=== PATIENT | female | born 1995 | race Two or more races ===

== ENCOUNTER → 2023-12-30 | Outpatient (CLI) | payer OTHER | END | disposition home or self-care (01) | LOC: LAB 09:08 | PROVIDERS: ATTEND Obstetrics & Gynecology | DX: R87.610 Atypical squamous cells of undetermined significance on cytologic smear of cervix (ASC-US) (principal) ==

== ENCOUNTER 2024-09-27 10:22 | Observation (INO) | payer OTHER ==
[~2024-09-27] VITALS: Ht 172.7 cm; Wt 86.2 kg
[2024-09-27] MEDS ORDERED: ACETAMINOPHEN 325 MG TAB PO ONE ×2 (10:45)
[2024-09-27 11:26] LABS: Basophils # (auto) 0 10 ^3/uL (0-0.2); Basophils % (auto) 0.3 % (0.0-2.0); Eosinophils # (auto) 0 10 ^3/uL (0-0.8); Eosinophils % (auto) 0.6 % (0.0-7.0); Hematocrit 33.8 % (36.0-46.0); Hemoglobin 11.9 g/dL (12.2-16.2); Lymphocytes # (auto) 1.9 10 ^3/uL (0.4-5.4); Mean Corpuscular Hemoglobin 32.2 pg (28.0-32.0); Mean Corpuscular Hgb Conc. 35.2 g/dL (32.0-36.0); Mean Corpuscular Volume 91.5 fL (80.0-100.0); Monocytes # (auto) 0.6 10 ^3/uL (0-1.3); Monocytes % (auto) 6.8 % (0.0-12.0); Neutrophils % (auto) 70.3 % (37.0-80.0); Platelet Count (auto) 238 10^3/uL (140-450); White Blood Cell 8.5 10^3/uL (4.4-10.8)
[2024-09-27 11:46] LABS: INR 0.88 (0.9-1.15); Prothrombin Time 9.4 sec (9.3-11.8)
[2024-09-27 11:48] LABS: Alanine Aminotransferase 12 U/L (7-40); Albumin 3.5 g/dL (3.2-4.8); Alkaline Phosphatase 107 U/L (46-116); Anion Gap 7 (5-15); Aspartate Aminotransferase 13 U/L (13-40); BUN/Creatinine Ratio 10.3 (10.0-20.0); Glucose 79 mg/dL (74-106); Sodium 137 mmol/L (136-145); Total Protein 5.9 g/dL (5.7-8.2); Uric Acid 3.6 mg/dL (3.1-7.8)
[2024-09-27 11:49] LABS: Bilirubin, Total 0.4 mg/dL (0.2-1.0); Carbon Dioxide 19 mmol/L (20-31); Chloride 111 mmol/L (98-107)
[2024-09-27 11:50] LABS: Blood Urea Nitrogen 6 mg/dL (9-23); Calcium 8.6 mg/dL (8.7-10.4)
[2024-09-27 11:57] LABS: Protein, Urine 25.9 mg/dL (1-14)
[2024-09-27 11:59] LABS: Creatinine, Urine 113.72 mg/dL (30.0-125.0); Urine Protein/Creatinine Ratio 0.23
--- NOTE | 2024-09-27 12:04 | DVH ---
Procedure: US BIOPHYSICAL PROFILE 09/27/2024 10:47 AM Indication: pih Comparison: None Technique: Sonogram of gravid uterus utilizing grayscale and color techniques. FINDINGS: Single living intrauterine gestation. Presentation: Cephalic Placenta: Anterior heart rate: 136 bpm JUAN ANTONIO: 12.3 cm, DVP: 6.1 cm Maternal cervix: Not visualized Biophysical Profile: breathing score: 2 movement score: 2 tone: 2 Quantitative JUAN ANTONIO score: 2 Total score: 8/8 IMPRESSION: 1. Single living as above. 2. Biophysical profile score: 8/8.
== END 2024-09-27 12:17 | disposition home or self-care (01) ==
LOC: UNDOADMOB 10:22 → LDRP 10:22 → UNDODISOB 12:17
PROVIDERS: ADMIT Obstetrics & Gynecology; ATTEND Obstetrics & Gynecology
DX: O13.3 Gestational [pregnancy-induced] hypertension without significant proteinuria, third trimester (principal); Z98.890 Other specified postprocedural states; Z79.899 Other long term (current) drug therapy; Z3A.39 39 weeks gestation of pregnancy
CPT/HCPCS: 36415; 76819; 80053; 81002; 82570; 84156; 84550; 85025; 85610; 85730; 94760; G0378

== ENCOUNTER 2024-09-28 14:52 | Inpatient (IN) | payer OTHER ==
[~2024-09-28] VITALS: Ht 177.8 cm; Wt 107.5 kg
[2024-10-02] MEDS ORDERED: BUTORPHANOL TARTRATE 2 MG/1 ML VIAL IV PRN ×2 (08:15)
--- NOTE | 2024-10-02 08:40 | DVH ---
LIMITED OB ULTRASOUND > 14 WKS: HISTORY: position of baby for induction of labor TECHNIQUE: Multiple real-time grayscale images of the gravid uterus with duplex Doppler color flow an d M-mode spectral analysis. TRANSDUCER: Transabdominal COMPARISON: None FINDINGS/IMPRESSION: heart rate 136 beats per minute Cephalic Presentation
--- NOTE | 2024-10-02 08:50 | DVHHP2 ---
OB CC & HPI Date Date of Admission: Oct 02, 2024 Patient Identification: : 2 Para: 0 EDC: Oct 02, 2024 EGA: [id number] Chief Complaints: Reason for admission: induction of labor Admission Nurse Assessment Rev: No History of Present Complaints PT IS ADMITTED FOR IOL ,PT DESIRES IOL BC OF SOCIAL ISSUES Past Medical History Cardiac: No pertinent Hx Pulmonary: No pertinent Hx Central Nervous System: No pertinent Hx GI: No pertinent Hx Hemotology/Oncology: No pertinent Hx Hepatobiliary: No pertinent Hx Psychiatric: No pertinent Hx Musculoskeletal: No pertinent Hx Rheumotologic: No pertinent Hx Infectious Disease: No peritnent Hx ENT: No pertinent Hx Renal/: No pertinent Hx Endocrine: No pertinent Hx Dermatology: No pertinent Hx Past Surgical History: No pertinent Hx OB History OB History Care: Good Care Ultrasounds: Normal mid trimester US Obstetrical Complications: None Medical Complications: None Allergies: Coded Allergies: NO KNOWN ALLERGIES (Unverified , 09/27/24) Home Meds No Active Prescriptions or Reported Meds Current Medications Current Medications Medications (Trade) Dose Ordered Sig/Chetan Route PRN Reason Start Time Stop Time Status Last Admin Lactated Ringer's 1,000 ml @ 125 mls/hr Q8H IV 10/02/24 08:15 Witch Sofy (Tucks) 1 pad PRN PRN TOP PERINEAL AREA DISCOMFORT 10/02/24 08:15 Sodium Lauryl Sulfate (Phisoderm) 240 ml PRN PRN TOP PERINEAL AREA DISCOMFORT 10/02/24 08:15 Benzocaine (Dermoplast) 1 applic PRN PRN TOP PERINEAL AREA DISCOMFORT 10/02/24 08:15 Butorphanol Tartrate (Stadol Injection) 1 mg Q4HPRN PRN IV MODERATE PAIN (4-6 PAIN SCALE) 10/02/24 08:15 Butorphanol Tartrate (Stadol Injection) 2 mg Q4HPRN PRN IV SEVERE PAIN (7-10 PAIN SCALE) 10/02/24 08:15 Misoprostol (Cytotec) 50 mcg Q4HPRN PRN PO CERVICAL RIPENING 10/02/24 08:15 Lidocaine HCl (Xylocaine) 20 ml ONCE PRN IJ PERINEAL AREA DISCOMFORT 10/02/24 08:15 Family & Social History Family/Social History Blood Type: Unknown Rubella: unknown RPR/VDRL: Negative GBS Status: Negative HBsAG: Negative Review of Systems Constitutional: No symptom reported Ears, Nose, & Throat: No symptom reported Eyes: No symptom reported Pulmonary/Respiratory: No symptom reported Cardiovascular: No symptom reported Gastrointestinal: No symptom reported Genitourinary: No symptom reported Musculoskeletal: No symptom reported Skin: No symptom reported Psychiatric: No symptom reported Endocrine: No symptom reported Hemotologic/Lymphatic: No symptom reported OB Admission Exam Physical Exam HEENT: TMs Normal, Fontanelles Normal, Nasal Mucosa Normal, Eyes non-injected, Oropharynx Normal, PERRLA, Moist Membranes, EOMI Heart: Rhythm Normal Lungs: Clear Abdomen: Non tender Extremities: Normal Reflexes: Normal Cervical Dilatation: 1cm Effacement: 25% Station: -2 Membranes: Intact Heart Rate: 130's Accelerations: Accelerations Present Decelerations: No Decelerations Long-Term Variability: Average (6-25) Contractions on Admission: >10 Minutes Apart Intensity: Mild OB Plan Plan Admitting Diagnosis: induction of labor Plan: Expectant Management, Induction Induction Methd: Misoprostol protocol Other Plan: INFORMED CONSENT OBTAINED Visit Coding OBGYN Date of Service: Oct 02, 2024 Billing Provider: JESSICA DAVENPORT DO LANGUAGE ARTS TEACHER Common Visit Codes: [id number] INP/OBS CARE (HIGH) LANGUAGE ARTS TEACHER Procedure Codes: 82868-99- NON-STRESS TEST JESSICA DAVENPORT DO Oct 02, 2024 08:50
[2024-10-02 09:29] LABS: Urine Bacteria None Seen /hpf (None Seen)
[2024-10-02 09:30] LABS: Basophils # (auto) 0 10 ^3/uL (0-0.2); Basophils % (auto) 0.2 % (0.0-2.0); Eosinophils # (auto) 0.1 10 ^3/uL (0-0.8); Eosinophils % (auto) 0.7 % (0.0-7.0); Hematocrit 35.2 % (36.0-46.0); Hemoglobin 11.5 g/dL (12.2-16.2); Lymphocytes # (auto) 1.8 10 ^3/uL (0.4-5.4); Lymphocytes % (auto) 22.3 % (10.0-50.0); Mean Corpuscular Hemoglobin 30.6 pg (28.0-32.0); Mean Corpuscular Hgb Conc. 32.7 g/dL (32.0-36.0); Mean Corpuscular Volume 93.6 fL (80.0-100.0); Monocytes # (auto) 0.6 10 ^3/uL (0-1.3); Monocytes % (auto) 7.7 % (0.0-12.0); Neutrophils # (auto) 5.5 10 ^3/uL (1.6-8.6); Neutrophils % (auto) 69.1 % (37.0-80.0); Nucleated Red Blood Cells % 0.1 %; Platelet Count (auto) 220 10^3/uL (140-450); Red Blood Cells 3.77 10^6/uL (4.0-5.20); Red Cell Distribution Width 13.5 % (11.8-14.3)
[2024-10-02 09:35] LABS: Urine Blood Negative /uL (Negative); Urine Clarity Turbid (Clear); Urine Color Light-Yellow (Yellow); Urine Hyaline Cast FEW /lpf (0 - 2); Urine Mucus FEW (None Seen); Urine Protein, UAD Negative (Negative); Urine Specific Gravity 1.027 (1.001-1.035); Urine Squamous Epithelial Cell MOD /hpf (<5); Urine Urobilinogen Normal (Negative); Urine WBC 8 /HPF (0-5)
--- NOTE | 2024-10-02 09:39 | DVHPN2 ---
Chief Complaints Patient reports: No new complaints Nursing reports: No new complaints Objective Medications Current Medications Medications (Trade) Dose Ordered Sig/Chetan Route PRN Reason Start Time Stop Time Status Last Admin Benzocaine (Dermoplast) 1 applic PRN PRN TOP PERINEAL AREA DISCOMFORT 10/02/24 08:15 Butorphanol Tartrate (Stadol Injection) 1 mg Q4HPRN PRN IV MODERATE PAIN (4-6 PAIN SCALE) 10/02/24 08:15 Butorphanol Tartrate (Stadol Injection) 2 mg Q4HPRN PRN IV SEVERE PAIN (7-10 PAIN SCALE) 10/02/24 08:15 Lactated Ringer's 1,000 ml @ 125 mls/hr Q8H IV 10/02/24 08:15 Lidocaine HCl (Xylocaine) 20 ml ONCE PRN IJ PERINEAL AREA DISCOMFORT 10/02/24 08:15 Misoprostol (Cytotec) 50 mcg Q4HPRN PRN PO CERVICAL RIPENING 10/02/24 08:15 Sodium Lauryl Sulfate (Phisoderm) 240 ml PRN PRN TOP PERINEAL AREA DISCOMFORT 10/02/24 08:15 Witch Sofy (Tucks) 1 pad PRN PRN TOP PERINEAL AREA DISCOMFORT 10/02/24 08:15 Others ve unchanged Studies Laboratory Tests 10/02/24 09:04 Test 10/02/24 09:04 Range/Units Serum Glucose Pending Ass/Plan Assessment iol Plan rec one cytotec Visit Coding OBGYN Date of Service: Oct 02, 2024 Billing Provider: JESSICA DAVENPORT DO SYSTEMS ACCOUNTANT Common Visit Codes: [id number] INP/OBS CARE (HIGH) SYSTEMS ACCOUNTANT Procedure Codes: 99278-69- NON-STRESS TEST JESSICA DAVENPORT DO Oct 02, 2024 09:39
[2024-10-02 09:42] LABS: INR 0.86 (0.9-1.15); Partial Thromboplastin Time 28.7 SEC (24.5-34.5); Prothrombin Time 9.3 sec (9.3-11.8)
[2024-10-02] MEDS: DERMOPLAST 60ML BOTTLE TOP PRN (09:42)
[2024-10-02] MEDS: WITCH HAZEL-GLYCERIN PAD TOP PRN (09:42)
[2024-10-02] MEDS: miSOPROStol 50 MCG per PRE-CUT 1/2 TAB PO PRN (09:42)
[2024-10-02] MEDS: PHISODERM TOP SOLN 240ML BTL TOP PRN (09:42)
[2024-10-02 09:43] LABS: Alanine Aminotransferase 10 U/L (7-40); Albumin 3.3 g/dL (3.2-4.8); Alkaline Phosphatase 107 U/L (46-116); Anion Gap 9 (5-15); Aspartate Aminotransferase 17 U/L (13-40); BUN/Creatinine Ratio 10.3 (10.0-20.0); Calcium 8.7 mg/dL (8.7-10.4); Glucose 91 mg/dL (74-106); Potassium 3.8 mmol/L (3.5-5.1); Sodium 137 mmol/L (136-145)
[2024-10-02] MEDS: LIDOCAINE 2%HCL (LOCAL ANESTH.) INJ 20ML MDV IJ PRN (09:43)
[2024-10-02 09:44] LABS: Bilirubin, Total 0.4 mg/dL (0.2-1.0)
[2024-10-02] MEDS: LACTATED RINGER'S 1,000 ML IV SCH (09:44)
[2024-10-02 09:45] LABS: Blood Urea Nitrogen 8 mg/dL (9-23); Carbon Dioxide 16 mmol/L (20-31); Chloride 112 mmol/L (98-107); Total Protein 5.7 g/dL (5.7-8.2)
[2024-10-02 10:08] LABS: Amphetamine Screen, Urine Neg (NEGATIVE); Barbiturate Scree,Urine Neg (NEGATIVE); Benzodiazephine Screen, Urine Neg (NEGATIVE); Cannabinoid Screen, Urine Neg (NEGATIVE); Cocaine Screen, Urine Neg (NEGATIVE); Opiate Scree,Urine Neg (NEGATIVE); Phencyclidine Screen, Urine Neg (NEGATIVE)
--- NOTE | 2024-10-02 18:32 | DVHPN2 ---
Chief Complaints Patient reports: No new complaints Nursing reports: No new complaints Objective Medications Current Medications Medications (Trade) Dose Ordered Sig/Chetan Route PRN Reason Start Time Stop Time Status Last Admin Benzocaine (Dermoplast) 1 applic PRN PRN TOP PERINEAL AREA DISCOMFORT 10/02/24 08:15 10/02/24 09:42 Butorphanol Tartrate (Stadol Injection) 1 mg Q4HPRN PRN IV MODERATE PAIN (4-6 PAIN SCALE) 10/02/24 08:15 Butorphanol Tartrate (Stadol Injection) 2 mg Q4HPRN PRN IV SEVERE PAIN (7-10 PAIN SCALE) 10/02/24 08:15 Lactated Ringer's 1,000 ml @ 125 mls/hr Q8H IV 10/02/24 08:15 10/02/24 15:04 Lidocaine HCl (Xylocaine) 20 ml ONCE PRN IJ PERINEAL AREA DISCOMFORT 10/02/24 08:15 10/02/24 09:43 Misoprostol (Cytotec) 50 mcg Q4HPRN PRN PO CERVICAL RIPENING 10/02/24 08:15 10/02/24 14:56 Sodium Lauryl Sulfate (Phisoderm) 240 ml PRN PRN TOP PERINEAL AREA DISCOMFORT 10/02/24 08:15 10/02/24 09:42 Witch Sofy (Tucks) 1 pad PRN PRN TOP PERINEAL AREA DISCOMFORT 10/02/24 08:15 10/02/24 09:42 Others VE-1.2 CM/50/-2 Studies Laboratory Tests 10/02/24 09:04 Test 10/02/24 09:04 Range/Units Serum Glucose 91 74-106 mg/dL Ass/Plan Assessment iol Plan FLORES BALLON INSERTED CONT WITH CYTOTEC Visit Coding OBGYN Date of Service: Oct 02, 2024 Billing Provider: JESSICA DAVENPORT DO DRIER TAKE OFF TENDER Common Visit Codes: [id number] INP/OBS CARE(HIGH) DRIER TAKE OFF TENDER Procedure Codes: 80338-79- NON-STRESS TEST JESSICA DAVENPORT DO Oct 02, 2024 18:32
--- NOTE | 2024-10-02 21:54 | DVHPN2 ---
OB Labor Progress Note Date and Time Seen Date Seen: Oct 02, 2024 Time Seen: 20:10 Subjective Patient reports: No new complaints Monitoring Method Monitoring Method: External Heart Rate Heart Rate Baseline: 125 Heart Rate Variability: Moderate Presence of FHR Accelerations: Yes Presence of FHR Decelerations: No Changes in Trends of Patterns: No Are all 5 Components of the FH: Yes Contractions Contractions Frequency: Other (Q2-3min) Duration of Contraction: 80 Contractions Intensity: Mild Contractions Resting Tone: Relaxed Membranes Membranes: Intact Vaginal Exam Vag Exam Deferred: No Vaginal Exam Dilation: 1 Vaginal Exam Effacement: 0 Vaginal Exam Station: -3 Vaginal Exam Presentation: VTX Vaginal Exam Show: None Medications Medications - Pitocin: No Medication - Epidural: No Medication - Other Misoprostol Lab Results Lab Results Vital Signs Date Time Temp Pulse Resp B/P (MAP) Pulse Ox O2 Delivery O2 Flow Rate FiO2 10/03/24 02:37 114/70 10/03/24 02:28 98.9 53 16 95 98.9 Current Medications Medications (Trade) Dose Ordered Sig/Chetan Start Time Stop Time Status Last Admin Dose Admin Lactated Ringer's 1,000 ml @ 125 mls/hr Q8H 10/02/24 08:15 10/03/24 02:38 125 MLS/HR Witch Sofy (Tucks) 1 pad PRN PRN 10/02/24 08:15 10/02/24 09:42 1 PAD Sodium Lauryl Sulfate (Phisoderm) 240 ml PRN PRN 10/02/24 08:15 10/02/24 09:42 240 ML Benzocaine (Dermoplast) 1 applic PRN PRN 10/02/24 08:15 10/02/24 09:42 1 APPLIC Butorphanol Tartrate (Stadol Injection) 1 mg Q4HPRN PRN 10/02/24 08:15 10/03/24 02:07 DC Butorphanol Tartrate (Stadol Injection) 2 mg Q4HPRN PRN 10/02/24 08:15 10/03/24 02:07 DC Misoprostol (Cytotec) 50 mcg Q4HPRN PRN 10/02/24 08:15 10/02/24 14:56 50 MCG Lidocaine HCl (Xylocaine) 20 ml ONCE PRN 10/02/24 08:15 10/02/24 09:43 20 ML Naloxone HCl (Narcan) 0.2 mg PRN ONCE 10/03/24 00:30 10/03/24 00:32 DC Ephedrine Sulfate (ePHEDrine SULFATE) 10 mg PRN ONCE 10/03/24 00:30 10/03/24 00:32 DC Fentanyl Citrate 100 mcg ONCE ONCE 10/03/24 00:30 10/03/24 00:32 DC 10/03/24 02:37 100 MCG Lidocaine HCl (Xylocaine-Pf 2% Injection) 10 ml ONCE ONCE 10/03/24 00:45 10/03/24 00:46 DC 10/03/24 02:38 10 ML Ondansetron HCl (Zofran) 4 mg Q4HPRN PRN 10/03/24 00:45 Oxytocin 1,000 ml @ 6 ml/hr Q24H 10/03/24 03:15 10/03/24 04:44 6 ML/HR Terbutaline Sulfate (Brethine Inj) 0.25 mg ONCE PRN 10/03/24 03:15 Oxytocin 500 ml @ 999 mls/hr Q31M ONCE 10/03/24 03:15 10/03/24 03:45 DC Oxytocin 500 ml @ 125 mls/hr Q4H ONCE 10/03/24 03:45 10/03/24 07:44 Cefazolin Sodium 50 ml @ 100 mls/hr Q8HR 10/03/24 06:00 10/03/24 05:54 100 MLS/HR Laboratory Tests Test 10/02/24 09:04 10/02/24 08:00 Range/Units White Blood Count 8.0 4.4-10.8 10^3/uL Red Blood Count 3.77 L 4.0-5.20 10^6/uL Hemoglobin 11.5 L 12.2-16.2 g/dL Hematocrit 35.2 L 36.0-46.0 % Mean Corpuscular Volume 93.6 80.0-100.0 fL Mean Corpuscular Hemoglobin 30.6 28.0-32.0 pg Mean Corpuscular Hemoglobin Concent 32.7 32.0-36.0 g/dL Red Cell Distribution Width 13.5 11.8-14.3 % Platelet Count 220 140-450 10^3/uL Mean Platelet Volume 8.7 6.9-10.8 fL Neutrophils (%) (Auto) 69.1 37.0-80.0 % Lymphocytes (%) (Auto) 22.3 10.0-50.0 % Monocytes (%) (Auto) 7.7 0.0-12.0 % Eosinophils (%) (Auto) 0.7 0.0-7.0 % Basophils (%) (Auto) 0.2 0.0-2.0 % Neutrophils # (Auto) 5.5 1.6-8.6 10 ^3/uL Lymphocytes # (Auto) 1.8 0.4-5.4 10 ^3/uL Monocytes # (Auto) 0.6 0-1.3 10 ^3/uL Eosinophils # (Auto) 0.1 0-0.8 10 ^3/uL Basophils # (Auto) 0 0-0.2 10 ^3/uL Nucleated Red Blood Cells 0.1 % Prothrombin Time 9.3 9.3-11.8 sec Prothrombin Time INR 0.86 L 0.9-1.15 Activated Partial Thromboplast Time 28.7 24.5-34.5 SEC Sodium Level 137 136-145 mmol/L Potassium Level 3.8 3.5-5.1 mmol/L Chloride Level 112 H 98-107 mmol/L Carbon Dioxide Level 16 L 20-31 mmol/L Anion Gap 9 5-15 Blood Urea Nitrogen 8 L 9-23 mg/dL Creatinine 0.78 # 0.550-1.02 mg/dL Glomerular Filtration Rate Calc 105 >90 mL/min BUN/Creatinine Ratio 10.3 10.0-20.0 Serum Glucose 91 74-106 mg/dL Calcium Level 8.7 8.7-10.4 mg/dL Total Bilirubin 0.4 0.2-1.0 mg/dL Aspartate Amino Transferase (AST) 17 13-40 U/L Alanine Aminotransferase (ALT) 10 7-40 U/L Alkaline Phosphatase 107 46-116 U/L Total Protein 5.7 5.7-8.2 g/dL Albumin 3.3 3.2-4.8 g/dL Treponema pallidum Antibody Non-reactive Negative Hepatitis C Antibody Negative Negative Urine Color Light-yellow Yellow Urine Clarity Turbid H Clear Urine pH 6.0 5.0-9.0 Urine Specific [place] 1.027 1.001-1.035 Urine Protein Negative Negative Urine Ketones Negative Negative Urine Blood Negative Negative /uL Urine Nitrite Negative Negative Urine Bilirubin Negative Negative Urine Urobilinogen Normal Negative mg/dL Urine Leukocyte Esterase Trace Negative /uL Urine RBC 2 0 - 4 /hpf Urine Microscopic WBC 8 H 0-5 /HPF Urine Squamous Epithelial Cells Mod <5 /hpf Urine Bacteria None seen None Seen /hpf Urine Hyaline Casts Few 0 - 2 /lpf Urine Mucus Few None Seen Urine Glucose Normal Normal mg/dL Urine Opiates Screen Neg NEGATIVE Urine Fentanyl Screen Neg NEGATIVE Urine Barbiturates Screen Neg NEGATIVE Urine Phencyclidine Screen Neg NEGATIVE Urine Amphetamines Screen Neg NEGATIVE Urine Benzodiazepines Screen Neg NEGATIVE Urine Cocaine Screen Neg NEGATIVE Urine Cannabinoids Screen Neg NEGATIVE Assessment Assessment IUP at 39w 5d IOL Category 1 FHR tracing Plan Plan [place] balloon readjusted Continue EFM per policy Intrauterine resuscitation PRN Encourage ambulation / frequent position change to facilitate labor Labor analgesia /anesthesia PRN Plan discussed with: Patient, Other (Mother) Visit Coding OBGYN Date of Service: Oct 02, 2024 Billing Provider: SCHUYLER RAGSDALE CNM FISHERIES TECHNICAL OFFICER Common Visit Codes: [id number] INP/OBS CARE(HIGH) FISHERIES TECHNICAL OFFICER Procedure Codes: 72794-85- NON-STRESS TEST SCHUYLER RAGSDALE CNM Oct 02, 2024 21:54
--- NOTE | 2024-10-03 00:11 | DVHPN2 ---
OB Labor Progress Note Date and Time Seen Date Seen: Oct 03, 2024 Time Seen: 00:01 Subjective Patient reports: Other (Contractions feeling stronger) Monitoring Method Monitoring Method: External Heart Rate Heart Rate Baseline: 115 Heart Rate Variability: Moderate Presence of FHR Accelerations: Yes Presence of FHR Decelerations: No Changes in Trends of Patterns: No Are all 5 Components of the FH: Yes Contractions Contractions Frequency: Other (2-3min) Duration of Contraction: 70 Contractions Intensity: Moderate Contractions Resting Tone: Relaxed Membranes Membranes: Intact Vaginal Exam Vag Exam Deferred: Yes Medications Medications - Pitocin: No Medication - Epidural: No Medication - Other Misoprostol Dose #2 given at 1456 Lab Results Lab Results Vital Signs Date Time Temp Pulse Resp B/P (MAP) Pulse Ox O2 Delivery O2 Flow Rate FiO2 10/03/24 02:37 114/70 10/03/24 02:28 98.9 53 16 95 98.9 Current Medications Medications (Trade) Dose Ordered Sig/Chetan Start Time Stop Time Status Last Admin Dose Admin Lactated Ringer's 1,000 ml @ 125 mls/hr Q8H 10/02/24 08:15 10/03/24 02:38 125 MLS/HR Witch Sofy (Tucks) 1 pad PRN PRN 10/02/24 08:15 10/02/24 09:42 1 PAD Sodium Lauryl Sulfate (Phisoderm) 240 ml PRN PRN 10/02/24 08:15 10/02/24 09:42 240 ML Benzocaine (Dermoplast) 1 applic PRN PRN 10/02/24 08:15 10/02/24 09:42 1 APPLIC Butorphanol Tartrate (Stadol Injection) 1 mg Q4HPRN PRN 10/02/24 08:15 10/03/24 02:07 DC Butorphanol Tartrate (Stadol Injection) 2 mg Q4HPRN PRN 10/02/24 08:15 10/03/24 02:07 DC Misoprostol (Cytotec) 50 mcg Q4HPRN PRN 10/02/24 08:15 10/02/24 14:56 50 MCG Lidocaine HCl (Xylocaine) 20 ml ONCE PRN 10/02/24 08:15 10/02/24 09:43 20 ML Naloxone HCl (Narcan) 0.2 mg PRN ONCE 10/03/24 00:30 10/03/24 00:32 DC Ephedrine Sulfate (ePHEDrine SULFATE) 10 mg PRN ONCE 10/03/24 00:30 10/03/24 00:32 DC Fentanyl Citrate 100 mcg ONCE ONCE 10/03/24 00:30 10/03/24 00:32 DC 10/03/24 02:37 100 MCG Lidocaine HCl (Xylocaine-Pf 2% Injection) 10 ml ONCE ONCE 10/03/24 00:45 10/03/24 00:46 DC 10/03/24 02:38 10 ML Ondansetron HCl (Zofran) 4 mg Q4HPRN PRN 10/03/24 00:45 Oxytocin 1,000 ml @ 6 ml/hr Q24H 10/03/24 03:15 10/03/24 04:44 6 ML/HR Terbutaline Sulfate (Brethine Inj) 0.25 mg ONCE PRN 10/03/24 03:15 Oxytocin 500 ml @ 999 mls/hr Q31M ONCE 10/03/24 03:15 10/03/24 03:45 DC Oxytocin 500 ml @ 125 mls/hr Q4H ONCE 10/03/24 03:45 10/03/24 07:44 Cefazolin Sodium 50 ml @ 100 mls/hr Q8HR 10/03/24 06:00 10/03/24 05:54 100 MLS/HR Laboratory Tests Test 10/02/24 09:04 10/02/24 08:00 Range/Units White Blood Count 8.0 4.4-10.8 10^3/uL Red Blood Count 3.77 L 4.0-5.20 10^6/uL Hemoglobin 11.5 L 12.2-16.2 g/dL Hematocrit 35.2 L 36.0-46.0 % Mean Corpuscular Volume 93.6 80.0-100.0 fL Mean Corpuscular Hemoglobin 30.6 28.0-32.0 pg Mean Corpuscular Hemoglobin Concent 32.7 32.0-36.0 g/dL Red Cell Distribution Width 13.5 11.8-14.3 % Platelet Count 220 140-450 10^3/uL Mean Platelet Volume 8.7 6.9-10.8 fL Neutrophils (%) (Auto) 69.1 37.0-80.0 % Lymphocytes (%) (Auto) 22.3 10.0-50.0 % Monocytes (%) (Auto) 7.7 0.0-12.0 % Eosinophils (%) (Auto) 0.7 0.0-7.0 % Basophils (%) (Auto) 0.2 0.0-2.0 % Neutrophils # (Auto) 5.5 1.6-8.6 10 ^3/uL Lymphocytes # (Auto) 1.8 0.4-5.4 10 ^3/uL Monocytes # (Auto) 0.6 0-1.3 10 ^3/uL Eosinophils # (Auto) 0.1 0-0.8 10 ^3/uL Basophils # (Auto) 0 0-0.2 10 ^3/uL Nucleated Red Blood Cells 0.1 % Prothrombin Time 9.3 9.3-11.8 sec Prothrombin Time INR 0.86 L 0.9-1.15 Activated Partial Thromboplast Time 28.7 24.5-34.5 SEC Sodium Level 137 136-145 mmol/L Potassium Level 3.8 3.5-5.1 mmol/L Chloride Level 112 H 98-107 mmol/L Carbon Dioxide Level 16 L 20-31 mmol/L Anion Gap 9 5-15 Blood Urea Nitrogen 8 L 9-23 mg/dL Creatinine 0.78 # 0.550-1.02 mg/dL Glomerular Filtration Rate Calc 105 >90 mL/min BUN/Creatinine Ratio 10.3 10.0-20.0 Serum Glucose 91 74-106 mg/dL Calcium Level 8.7 8.7-10.4 mg/dL Total Bilirubin 0.4 0.2-1.0 mg/dL Aspartate Amino Transferase (AST) 17 13-40 U/L Alanine Aminotransferase (ALT) 10 7-40 U/L Alkaline Phosphatase 107 46-116 U/L Total Protein 5.7 5.7-8.2 g/dL Albumin 3.3 3.2-4.8 g/dL Treponema pallidum Antibody Non-reactive Negative Hepatitis C Antibody Negative Negative Urine Color Light-yellow Yellow Urine Clarity Turbid H Clear Urine pH 6.0 5.0-9.0 Urine Specific [place] 1.027 1.001-1.035 Urine Protein Negative Negative Urine Ketones Negative Negative Urine Blood Negative Negative /uL Urine Nitrite Negative Negative Urine Bilirubin Negative Negative Urine Urobilinogen Normal Negative mg/dL Urine Leukocyte Esterase Trace Negative /uL Urine RBC 2 0 - 4 /hpf Urine Microscopic WBC 8 H 0-5 /HPF Urine Squamous Epithelial Cells Mod <5 /hpf Urine Bacteria None seen None Seen /hpf Urine Hyaline Casts Few 0 - 2 /lpf Urine Mucus Few None Seen Urine Glucose Normal Normal mg/dL Urine Opiates Screen Neg NEGATIVE Urine Fentanyl Screen Neg NEGATIVE Urine Barbiturates Screen Neg NEGATIVE Urine Phencyclidine Screen Neg NEGATIVE Urine Amphetamines Screen Neg NEGATIVE Urine Benzodiazepines Screen Neg NEGATIVE Urine Cocaine Screen Neg NEGATIVE Urine Cannabinoids Screen Neg NEGATIVE Assessment Assessment IUPat 39w 6d IOL Category 1 FHR Tracing Rubella Non-Immune Plan Plan Continue Current management EFM per policy Intrauterine resuscitation PRN Encourage and assist with ambulation and frequent position change to facilitate labor Labor analgesia / anesthesia PRN Supportive care Plan discussed with: Patient, Other (Patient's mother) Visit Coding OBGYN Date of Service: Oct 03, 2024 Billing Provider: SCHUYLER RAGSDALE CNM NETWORKING TECHNICIAN Common Visit Codes: [id number] INP/OBS CARE(HIGH) NETWORKING TECHNICIAN Procedure Codes: 94889-25- NON-STRESS TEST SCHUYLER RAGSDALE CNM Oct 03, 2024 00:11
[2024-10-03] MEDS ORDERED: LIDOCAINE HCL 2 %PF INJ 10ML AMP IJ ONE (00:17)
[2024-10-03] MEDS ORDERED: NALOXONE HCL 0.4 MG/ML VIAL IV ONE (00:30)
[2024-10-03] MEDS ORDERED: ePHEDrine SULFATE 50 MG/ML AMP IV ONE (00:30)
--- NOTE | 2024-10-03 01:57 | EPIDURAL ---
Anesthesia Procedural Note - Epidural Informed consent obtained?: Yes Medication Administered: Fentanyl 100 mcg Sterile prept drape: Yes Spinal level of insertion: L4-L5 Test dose of lidocaine & Epine: Negative Infusion started: Yes Start time: 00:50 End time: 01:15 Procedure description Procedure description: Called for labor analgesia. History taken, chart reviewed and patient examined. Patient is at 39+6 here for induction of labor, requesting epidural. Informed consent for CSE obtained. Sitting position, sterile prep and drape. Time out done at 0053 (BP 127/78 HR 78 spO2 99). L4-5 space infiltrated with 1% lido. Epidural needle placed with KALIN at 5cm. 25G spinal needle +clear CSF. 15mcg fentanyl given IT at 0059 (BP 116/74 HR 81 spO2 97). Epidural catheter secured at 10cm. Aspiration and test dose (5cc 1.5% lido with epi) negative at 0101 (BP 116/70 HR 71 spO2 98). 85 mcg fentanyl given via epidural at 0102 9BP 110/68 HR 65 spO2 97). Patient reports good pain relief. 0.2% ropivacaine infusion started at 0112 (BP 111/69 HR 80 spO2 97). VIOLET LYON MD Oct 03, 2024 01:57
[2024-10-03 02:28] VITALS: BP 107/62; PULSE 53; RESP 16; TEMP 98.9; O2SAT 95
[2024-10-03] MEDS: fentaNYL CITRATE 100 MCG/2 ML VL IV ONE (02:37)
[2024-10-03] MEDS: LIDOCAINE HCL 2 %PF INJ 10ML AMP IJ ONE (02:38)
[2024-10-03] MEDS ORDERED: TERBUTALINE SULFATE 1 MG/ML 1ML VIAL SC PRN (03:15)
[2024-10-03] MEDS: LACT. RINGERS/OXYTOCIN 20UNITS 1,000 ML IV SCH (04:44)
[2024-10-03] MEDS: ROPIVACAINE HCL 200 ML ONE ×2 (05:04→13:26)
--- NOTE | 2024-10-03 05:38 | DVHPN2 ---
OB Labor Progress Note Date and Time Seen Date Seen: Oct 03, 2024 Time Seen: 04:20 Subjective Patient reports: No new complaints Monitoring Method Monitoring Method: External Heart Rate Heart Rate Baseline: 115 Heart Rate Variability: Moderate Presence of FHR Decelerations: No Changes in Trends of Patterns: No Are all 5 Components of the FH: Yes Contractions Contractions Frequency: Other (2min) Duration of Contraction: 80 Contractions Intensity: Moderate Contractions Resting Tone: Relaxed Membranes Membranes: Intact Vaginal Exam Vag Exam Deferred: No Vaginal Exam Dilation: 5 Vaginal Exam Effacement: 50 Vaginal Exam Station: -2 Vaginal Exam Presentation: VTX Vaginal Exam Show: Moderate Medications Medications - Pitocin: Yes Medication - Epidural: Yes Lab Results Lab Results Vital Signs Date Time Temp Pulse Resp B/P (MAP) Pulse Ox O2 Delivery O2 Flow Rate FiO2 10/03/24 02:37 114/70 10/03/24 02:28 98.9 53 16 95 98.9 Current Medications Medications (Trade) Dose Ordered Sig/Chetan Start Time Stop Time Status Last Admin Dose Admin Lactated Ringer's 1,000 ml @ 125 mls/hr Q8H 10/02/24 08:15 10/03/24 02:38 125 MLS/HR Witch Sofy (Tucks) 1 pad PRN PRN 10/02/24 08:15 10/02/24 09:42 1 PAD Sodium Lauryl Sulfate (Phisoderm) 240 ml PRN PRN 10/02/24 08:15 10/02/24 09:42 240 ML Benzocaine (Dermoplast) 1 applic PRN PRN 10/02/24 08:15 10/02/24 09:42 1 APPLIC Butorphanol Tartrate (Stadol Injection) 1 mg Q4HPRN PRN 10/02/24 08:15 10/03/24 02:07 DC Butorphanol Tartrate (Stadol Injection) 2 mg Q4HPRN PRN 10/02/24 08:15 10/03/24 02:07 DC Misoprostol (Cytotec) 50 mcg Q4HPRN PRN 10/02/24 08:15 10/02/24 14:56 50 MCG Lidocaine HCl (Xylocaine) 20 ml ONCE PRN 10/02/24 08:15 10/02/24 09:43 20 ML Naloxone HCl (Narcan) 0.2 mg PRN ONCE 10/03/24 00:30 10/03/24 00:32 DC Ephedrine Sulfate (ePHEDrine SULFATE) 10 mg PRN ONCE 10/03/24 00:30 10/03/24 00:32 DC Fentanyl Citrate 100 mcg ONCE ONCE 10/03/24 00:30 10/03/24 00:32 DC 10/03/24 02:37 100 MCG Lidocaine HCl (Xylocaine-Pf 2% Injection) 10 ml ONCE ONCE 10/03/24 00:45 10/03/24 00:46 DC 10/03/24 02:38 10 ML Ondansetron HCl (Zofran) 4 mg Q4HPRN PRN 10/03/24 00:45 Oxytocin 1,000 ml @ 6 ml/hr Q24H 10/03/24 03:15 10/03/24 04:44 6 ML/HR Terbutaline Sulfate (Brethine Inj) 0.25 mg ONCE PRN 10/03/24 03:15 Oxytocin 500 ml @ 999 mls/hr Q31M ONCE 10/03/24 03:15 10/03/24 03:45 DC Oxytocin 500 ml @ 125 mls/hr Q4H ONCE 10/03/24 03:45 10/03/24 07:44 Cefazolin Sodium 50 ml @ 100 mls/hr Q8HR 10/03/24 06:00 10/03/24 05:54 100 MLS/HR Laboratory Tests Test 10/02/24 09:04 10/02/24 08:00 Range/Units White Blood Count 8.0 4.4-10.8 10^3/uL Red Blood Count 3.77 L 4.0-5.20 10^6/uL Hemoglobin 11.5 L 12.2-16.2 g/dL Hematocrit 35.2 L 36.0-46.0 % Mean Corpuscular Volume 93.6 80.0-100.0 fL Mean Corpuscular Hemoglobin 30.6 28.0-32.0 pg Mean Corpuscular Hemoglobin Concent 32.7 32.0-36.0 g/dL Red Cell Distribution Width 13.5 11.8-14.3 % Platelet Count 220 140-450 10^3/uL Mean Platelet Volume 8.7 6.9-10.8 fL Neutrophils (%) (Auto) 69.1 37.0-80.0 % Lymphocytes (%) (Auto) 22.3 10.0-50.0 % Monocytes (%) (Auto) 7.7 0.0-12.0 % Eosinophils (%) (Auto) 0.7 0.0-7.0 % Basophils (%) (Auto) 0.2 0.0-2.0 % Neutrophils # (Auto) 5.5 1.6-8.6 10 ^3/uL Lymphocytes # (Auto) 1.8 0.4-5.4 10 ^3/uL Monocytes # (Auto) 0.6 0-1.3 10 ^3/uL Eosinophils # (Auto) 0.1 0-0.8 10 ^3/uL Basophils # (Auto) 0 0-0.2 10 ^3/uL Nucleated Red Blood Cells 0.1 % Prothrombin Time 9.3 9.3-11.8 sec Prothrombin Time INR 0.86 L 0.9-1.15 Activated Partial Thromboplast Time 28.7 24.5-34.5 SEC Sodium Level 137 136-145 mmol/L Potassium Level 3.8 3.5-5.1 mmol/L Chloride Level 112 H 98-107 mmol/L Carbon Dioxide Level 16 L 20-31 mmol/L Anion Gap 9 5-15 Blood Urea Nitrogen 8 L 9-23 mg/dL Creatinine 0.78 # 0.550-1.02 mg/dL Glomerular Filtration Rate Calc 105 >90 mL/min BUN/Creatinine Ratio 10.3 10.0-20.0 Serum Glucose 91 74-106 mg/dL Calcium Level 8.7 8.7-10.4 mg/dL Total Bilirubin 0.4 0.2-1.0 mg/dL Aspartate Amino Transferase (AST) 17 13-40 U/L Alanine Aminotransferase (ALT) 10 7-40 U/L Alkaline Phosphatase 107 46-116 U/L Total Protein 5.7 5.7-8.2 g/dL Albumin 3.3 3.2-4.8 g/dL Treponema pallidum Antibody Non-reactive Negative Hepatitis C Antibody Negative Negative Urine Color Light-yellow Yellow Urine Clarity Turbid H Clear Urine pH 6.0 5.0-9.0 Urine Specific [place] 1.027 1.001-1.035 Urine Protein Negative Negative Urine Ketones Negative Negative Urine Blood Negative Negative /uL Urine Nitrite Negative Negative Urine Bilirubin Negative Negative Urine Urobilinogen Normal Negative mg/dL Urine Leukocyte Esterase Trace Negative /uL Urine RBC 2 0 - 4 /hpf Urine Microscopic WBC 8 H 0-5 /HPF Urine Squamous Epithelial Cells Mod <5 /hpf Urine Bacteria None seen None Seen /hpf Urine Hyaline Casts Few 0 - 2 /lpf Urine Mucus Few None Seen Urine Glucose Normal Normal mg/dL Urine Opiates Screen Neg NEGATIVE Urine Fentanyl Screen Neg NEGATIVE Urine Barbiturates Screen Neg NEGATIVE Urine Phencyclidine Screen Neg NEGATIVE Urine Amphetamines Screen Neg NEGATIVE Urine Benzodiazepines Screen Neg NEGATIVE Urine Cocaine Screen Neg NEGATIVE Urine Cannabinoids Screen Neg NEGATIVE Assessment Assessment IUP at 39w 6d IOL Category 1 FHR Tracing Rubella Non-Immune Plan Plan Continue current plan Intrauterine resuscitation PRN Frequent position change to facilitate labor Supportive care Anticipate Plan discussed with: Patient Visit Coding OBGYN Date of Service: Oct 03, 2024 Billing Provider: SCHUYLER RAGSDALE CNM GROCERY CLERK Common Visit Codes: [id number] INP/OBS CARE(HIGH) GROCERY CLERK Procedure Codes: 83393-38- NON-STRESS TEST SCHUYLER RAGSDALE CNM Oct 03, 2024 05:38
[2024-10-03] MEDS: ceFAZolin 1GM/50ML 50 ML IV SCH (05:54)
--- NOTE | 2024-10-03 07:11 | DVHPN2 ---
Chief Complaints Patient reports: No new complaints Nursing reports: No new complaints Objective Vitals Vital Signs Date Time Temp Pulse Resp B/P (MAP) Pulse Ox O2 Delivery O2 Flow Rate FiO2 10/03/24 02:37 114/70 10/03/24 02:28 98.9 53 16 95 98.9 Medications Current Medications Medications (Trade) Dose Ordered Sig/Chetan Route PRN Reason Start Time Stop Time Status Last Admin Benzocaine (Dermoplast) 1 applic PRN PRN TOP PERINEAL AREA DISCOMFORT 10/02/24 08:15 10/02/24 09:42 Cefazolin Sodium 50 ml @ 100 mls/hr Q8HR IV 10/03/24 06:00 10/03/24 05:54 Lactated Ringer's 1,000 ml @ 125 mls/hr Q8H IV 10/02/24 08:15 10/03/24 02:38 Lidocaine HCl (Xylocaine) 20 ml ONCE PRN IJ PERINEAL AREA DISCOMFORT 10/02/24 08:15 10/02/24 09:43 Misoprostol (Cytotec) 50 mcg Q4HPRN PRN PO CERVICAL RIPENING 10/02/24 08:15 10/02/24 14:56 Ondansetron HCl (Zofran) 4 mg Q4HPRN PRN IV NAUSEA / VOMITING 10/03/24 00:45 Oxytocin 1,000 ml @ 6 ml/hr Q24H IV 10/03/24 03:15 10/03/24 04:44 Sodium Lauryl Sulfate (Phisoderm) 240 ml PRN PRN TOP PERINEAL AREA DISCOMFORT 10/02/24 08:15 10/02/24 09:42 Terbutaline Sulfate (Brethine Inj) 0.25 mg ONCE PRN SC Uterine tachysystole 10/03/24 03:15 Witch Sofy (Tucks) 1 pad PRN PRN TOP PERINEAL AREA DISCOMFORT 10/02/24 08:15 10/02/24 09:42 Others VE-4-5CM/50/-2 Studies Laboratory Tests 10/02/24 09:04 Test 10/02/24 09:04 Range/Units Serum Glucose 91 74-106 mg/dL Ass/Plan Assessment iol Plan CONT WITH CURRENT CARE Visit Coding OBGYN Date of Service: Oct 03, 2024 Billing Provider: ZAND,JESSICA DO CLINICAL ADMINISTRATIVE COORDINATOR Common Visit Codes: [id number] INP/OBS CARE(HIGH) CLINICAL ADMINISTRATIVE COORDINATOR Procedure Codes: 32092-83- NON-STRESS TEST JESSICA DAVENPORT DO Oct 03, 2024 07:11
[2024-10-03] MEDS: ONDANSETRON HCL 4 MG/2 ML VIAL IV PRN (08:44)
[2024-10-03] MEDS: METHYLERGONOVINE MALEATE 0.2 MG/ML AMP IM ONE ×2 (15:44→16:43)
[2024-10-03] MEDS: LACT. RINGERS/OXYTOCIN 20UNITS 500 ML IV ONE ×2 (15:48→16:08)
--- NOTE | 2024-10-03 16:12 | LDN2 ---
Labor and Delivery Note Date 10/03/24 Age 28 3 Para 1 AB 2 EDC 4-6 EGA 39wks Diagnosis iol Vaginal Delivery: VTX Vacuum Assisted: No Placenta: Spontaneous Sex: Male Apgars 9-10 Nuchal Cord Transected: Yes Amniotic Fluid: Clear Anesthesia epidural Episiotomy: No Extension: Yes (midline 2nd deg perineal lac ) Repaired with 2-0 chromic EBL 300ml Labs Blood Bank 10/02/24 09:04: Blood Type O POSITIVE Complications none Conditions stable Comments/Significant Med Daniella spec exam no cxal alc Visit Coding OBGYN Date of Service: Oct 03, 2024 Billing Provider: JESSICA DAVENPORT DO STEEL PICKLER Common Visit Codes: [id number] INP/OBS CARE(LOW) STEEL PICKLER Procedure Codes: [id number] DELIVERY ONLY JESSICA DAVENPORT DO Oct 03, 2024 16:12
[2024-10-03] MEDS ORDERED: ACETAMINOPHEN 325 MG TAB PO PRN (16:15)
[2024-10-03] MEDS: IBUPROFEN 600 MG TAB PO PRN (16:42)
[2024-10-03] MEDS: HYDROcodone-ACET 10/325MG TAB PO PRN (17:57)
[2024-10-03 19:00] VITALS: BP 124/64; PULSE 97; RESP 16; TEMP 98.4; O2SAT 95
[2024-10-03] MEDS ORDERED: TRANEXAMIC ACID 1,000 mg/10ml INJ VIAL IV ONE (19:47)
[2024-10-03] MEDS: DOCUSATE SOD 100 MG CAP PO SCH (22:03)
[2024-10-03 23:00] VITALS: BP 125/59; PULSE 82; RESP 16; TEMP 98.1; O2SAT 97
[2024-10-04 03:00] VITALS: BP 98/59; PULSE 81; RESP 16; TEMP 98.7; O2SAT 96
[2024-10-04 07:30] VITALS: BP 110/64; PULSE 78; RESP 18; TEMP 98.2; O2SAT 97
[2024-10-04] MEDS ORDERED: PREN-96 PO (08:52)
[2024-10-04] MEDS ORDERED: IBU600T PO (08:52)
[2024-10-04] MEDS ORDERED: DOCU-265 PO (08:52)
[2024-10-04] MEDS ORDERED: HYDR-4072 PO (08:53)
[2024-10-04] MEDS ORDERED: DOCU-94 PO (08:53)
[2024-10-04 10:30] VITALS: BP 108/66; PULSE 77; RESP 18; TEMP 97.9; O2SAT 98
[2024-10-04] MEDS: TETANUS-DIPTH-ACEL PERTUSSIS 0.5ML SYR Tdap IM ONE (10:45)
[2024-10-04 15:00] VITALS: BP 122/68; PULSE 70; RESP 18; TEMP 98.3; O2SAT 98
--- NOTE | 2024-10-04 16:31 | DVHPN2 ---
Progress Note Date Seen: Oct 04, 2024 Subjective S: bleeding is less, eating food without issues, denies lightheaded/dizziness, pain well controlled with oral medications, no concerns with urinating, passing flatus, no BM yet, ambulating well, vital signs Vital Sign Date Time Temp Pulse Resp B/P (MAP) Pulse Ox O2 Delivery O2 Flow Rate FiO2 10/04/24 15:00 98.3 70 18 122/68 (86) 98 98.3 10/04/24 07:30 Room Air Total Intake and Output 10/03/24 10/03/24 10/04/24 15:00 23:00 07:00 Output Total 1000 ml 300 ml Balance -1000 ml -300 ml medications Current Medications Medications Dose Ordered Sig/Chetan Route Start Time Stop Time Status Last Admin Dose Admin Billy Goetz 1 pad PRN PRN TOP 10/02/24 08:15 10/02/24 09:42 1 PAD Sodium Lauryl Sulfate 240 ml PRN PRN TOP 10/02/24 08:15 10/02/24 09:42 240 ML Benzocaine 1 applic PRN PRN TOP 10/02/24 08:15 10/02/24 09:42 1 APPLIC Lidocaine HCl 20 ml ONCE PRN IJ 10/02/24 08:15 10/02/24 09:43 20 ML Ondansetron HCl 4 mg Q4HPRN PRN IV 10/03/24 00:45 10/03/24 13:16 4 MG Ibuprofen 600 mg Q6HP PRN PO 10/03/24 16:15 10/04/24 12:50 600 MG Acetaminophen 650 mg Q4HP PRN PO 10/03/24 16:15 Docusate Sodium 200 mg HS PO 10/03/24 22:00 10/03/24 22:03 200 MG Acetaminophen/ Hydrocodone Bitart 1 tab Q4HP PRN PO 10/03/24 17:45 10/04/24 08:41 1 TAB laboratory and microbiology Laboratory Tests 10/02/24 09:04 Test 10/02/24 09:04 Range/Units Serum Glucose 91 74-106 mg/dL Objective O: VSS Chest: heart sounds normal and lung sounds clear bilaterally Abd: soft, non-tender, fundus 1 below U/firm/midline, active bowel sounds, no rebound or guarding Perineum: sutures intact, edges well approximated, no erythema/edema noted Ext: Non-tender, No edema, 2+ BLE DTRs Lochia: minimal See lab results Problems(with codes): (1) (normal spontaneous vaginal delivery) (2) Second degree perineal laceration during delivery (3) Periurethral laceration, delivered, current hospitalization Assessment/Plan A: 28yo now PPD#1 s/p P: D/C home today Rx sent to pharmacy precautions and preeclampsia warning signs reviewed F/U with [facility] office in 2 weeks Plan discussed with: Patient Visit Coding OBGYN Date of Service: Oct 04, 2024 Billing Provider: MADELINE SALOMON CNM LOST CHARGE CARD CLERK Common Visit Codes: [id number] INP/OBS CARE(HIGH) MADELINE SALOMON CNM Oct 04, 2024 16:31
--- NOTE | 2024-10-04 16:31 | DVHDS2 ---
Obstetrics Discharge Summary Obstetrics Discharge Summary Date of Admission: Oct 02, 2024 Date of Discharge: Oct 04, 2024 Reason For Admission: Induction of Labor Procedures: NST, Ultrasound Intrapartum Procedures: Spontaneous vaginal deliv Procedures: None Operative Complicat: Laceration (Second degree Perineal and bilateral periuretheral) Discharge Diagnosis: Term -Delivered Discharge Information: Activity (as tolerated, no heavy lifting and nothing in the vagina for 6 weeks), Diet (Routine), Medications (Rx sent), Instructions (Routine), Discharge to (Home), Accompanied by (partner), Discarge date (10/04/24) Visit Coding OBGYN Date of Service: Oct 04, 2024 Billing Provider: MADELINE SALOMON CNM PATTERN SHOP SUPERVISOR Common Visit Codes: [id number] DISCH DAY <30MIN MADELINE SALOMON CNM Oct 04, 2024 16:31
== END 2024-10-04 17:35 | disposition home or self-care (01) | DRG 807 ==
LOC: OBSVTOIN 10-02 07:54 → LDRP 10-02 07:54
PROVIDERS: ADMIT Obstetrics & Gynecology; ATTEND Obstetrics & Gynecology
PROC: 10E0XZZ Delivery of Products of Conception, External Approach (ICD-10-PCS; principal; 2024-10-03)
PROC: 0KQM0ZZ Repair Perineum Muscle, Open Approach (ICD-10-PCS; 2024-10-03)
PROC: 0UQMXZZ Repair Vulva, External Approach (ICD-10-PCS; 2024-10-03)
PROC: 3E0DXGC Introduction of Other Therapeutic Substance into Mouth and Pharynx, External Approach (ICD-10-PCS; 2024-10-03)
PROC: 3E0R3BZ Introduction of Anesthetic Agent into Spinal Canal, Percutaneous Approach (ICD-10-PCS; 2024-10-03)
PROC: 00HU33Z Insertion of Infusion Device into Spinal Canal, Percutaneous Approach (ICD-10-PCS; 2024-10-03)
DX: O69.81X0 Labor and delivery complicated by cord around neck, without compression, not applicable or unspecified (principal); Z37.0 Single live birth; O70.1 Second degree perineal laceration during delivery; Z3A.39 39 weeks gestation of pregnancy; O71.82 Other specified trauma to perineum and vulva
CPT/HCPCS: 36415; 59200; 59409; 62282; 76815; 80053; 80307; 81001; 85025; 85610; 85730; 86780; 86803; 86850; 86900; 86901; 94760; 94762; 96360; 96361; 96365; 96366; 96372; 96374; 96375; G0378; J2405; J2590

== ENCOUNTER 2024-10-08 17:28 | Emergency (ER) | payer OTHER ==
[~2024-10-08] VITALS: Ht 177.8 cm; Wt 101.9 kg
[~2024-10-08 17:28] MED LIST: DOCU-265 PO; DOCU-94 PO; HYDR-4072 PO; IBU600T PO; PREN-96 PO
--- NOTE | 2024-10-08 18:27 | ED.PDOC ---
Musculoskeletal HPI Comments 28 y/o F presents with c/o bilateral leg swelling for the past 5 days, today. Patient reports onset of symptoms after having an induced delivery for her first 5 days ago. She admits to only Tylenol and Ibuprofen medication use. Patient denies having any significant medical, surgical, or family history or history of current symptoms in the past. Patient denies any chest pain, shortness of breath, leg pain, numbness, or weakness, or other associated symptoms, currently. Vitals: temperature of 98.1F, pulse rate of 61, respiration rate of 18, blood pressure of 164/96, and a SpO2 of 95%RA Past medical history: denies Past surgical history: denies Lippo: Leg swelling HPI: Poor Historian. REVIEW OF SYSTEMS: CONSTITUTIONAL: Denies acute: fever, diaphoresis, chills, generalized weakness. HEAD: Denies acute: headache, photophobia Eyes: Denies acute: Double vision, vision loss, eye pain, eye discharge. EARS: Denies acute: tinnitus, hearing loss, ear discharge, ear pain, THROAT: Denies acute: sore throat, swelling, difficulty swallowing , pain with swallowing, change in voice. NECK: Denies acute: neck pain, neck swelling, stiff neck. HEART: Denies acute : chest pain, palpitations, LUNGS: Denies acute: SOB, wheezing, cough, hemoptysis ABDOMEN: Denies acute: abdominal pain, Nausea, Vomiting, diarrhea, melena , hematemesis, hematochezia SKIN: Denies acute: rash, redness, lesions, itchiness. EXTREMITIES: Denies acute: calf pain, numbness, tingling, weakness, denies pain in extremity. Denies acute: Low back pain. Neuro: Denies acute: focal neurological deficit, motor or sensory focal neurological deficit, tremors, seizure like activity, confusion, dizziness, change in mental status, loss of bowel or bladder function, cauda equina like symptoms. : Denies acute: dysuria, hematuria, flank pain, increase in urinary frequency. PSYCH: Denies acute: hallucination, suicidal ideation, homicidal ideation. FEMALE: Denies acute: abnormal vaginal bleeding, foul odor, unusual discharge. PHYSICAL EXAM: General: -----no---acute distress, awake and alert. Head: normocephalic, atraumatic. Neck: supple, trachea is midline, no swelling. Throat: Normal phonation. Eyes:, no erythema, no purulent discharge, no proptosis, no icterus. Heart: regular rate, regular rhythm, no significant murmur appreciated. Lungs: no apparent respiratory distress, Able to speak in full sentences. No wheezing, no rhonchi, no crackles. No stridors Clear to auscultation bilaterally. Abdomen: non tender to palpation, non distended, soft, no guarding, no rebound, + bowel sounds. Neuro: Awake, Alert, oriented to name, self, situation, follows commands GCS=15. Speech is normal. Skin: no petechia, no purpura, no cyanosis, non-pale, not jaundice. Lower extremities: --2/4 bilateral- Pitting edema no deformity, no focal swelling,, no calf TTP. Patient is neurovascularly intact in bilateral lower extremities. Pedal pulses are palpable. Sensation and motor are present. Noted puffiness extending to the feet bilaterally and to the mid amaya Makes eye contact. moves all four extremities. Face: no apparent facial droop. Ambulating in the ED independently. ED COURSE: Chief Complaint: Lower Extremity Time Seen by MD: 17:30 Reviewed Notes: Nurses Notes, Medications, Allergies Allergies: Coded Allergies: Penicillins (Verified Allergy, Severe, 10/02/24) Home Meds Active Scripts Cephalexin Monohydrate (Cephalexin) 500 Mg Tab, 1 TAB PO TID for 7 Days, #21 TAB Prov:GEORGE WHITT DO 10/08/24 Furosemide (Lasix) 20 Mg Tb, 1 TAB PO DAILY for 3 Days, #3 TAB 0 Refills Prov:GEORGE WHITT DO 10/08/24 Hydrocodone-Acetaminophen (Hydrocodone/Acetaminophen 10-325 mg) 1 Tab Tab, 1 TAB PO Q6HPRN PRN for 7 Days, #28 TAB Prov:JESSICA DAVENPORT DO 10/04/24 Docusate Sodium (Colace) 100 Mg Cap, 1 CAP PO BID, #60 CAP 2 Refills Prov:JESSICA DAVENPORT DO 10/04/24 Vit W/ Ferrous Fumara ( One Daily) Daily Tab, 1 TAB PO DAILY, #90 TAB 3 Refills Prov:MADELINE SALOMON 10/04/24 Docusate Sodium (Docusate Sodium) 100 Mg Cap, 200 MG PO HS PRN for 30 Days, #60 CAP 2 Refills Prov:MADELINE SALOMON 10/04/24 Ibuprofen Micronized (MOTRIN TABLET) 600 Mg Tb, 600 MG PO Q6HP PRN for 20 Days, #80 TAB Prov:MADELINE SALOMON 10/04/24 Information Source: Patient Mode of Arrival: Ambulatory Was a procedure done? Was a procedure done?: No Differential Diagnosis EXT Differential Diagnosis: Cellulitis, CHF, Deep Vein Thrombosis, Compartment Syndrome, Fracture, Sprain, Neurovascular injury, Arthritis, Bursitis X-Ray, Labs, Meds, VS Vital Signs Date Time Temp Pulse Resp B/P (MAP) Pulse Ox O2 Delivery O2 Flow Rate FiO2 10/08/24 21:26 98.6 65 19 126/85 (99) 98 98.6 10/08/24 21:09 97.9 68 14 129/73 (91) 99 97.9 10/08/24 20:23 81 126/78 (94) 10/08/24 20:20 144/76 (98) 10/08/24 20:16 142/98 10/08/24 20:00 142/98 (113) 10/08/24 17:36 98.1 61 18 164/96 (118) 95 98.1 Lab Test 10/08/24 20:00 10/08/24 18:14 Range/Units Urine Color Colorless Yellow Urine Clarity Turbid H Clear Urine pH 6.5 5.0-9.0 Urine Specific [place] 1.015 1.001-1.035 Urine Protein Negative Negative Urine Ketones 1+ H Negative Urine Blood 3+ H Negative /uL Urine Nitrite Negative Negative Urine Bilirubin Negative Negative Urine Urobilinogen Normal Negative mg/dL Urine Leukocyte Esterase 3+ Negative /uL Urine RBC 57 0 - 4 /hpf Urine Microscopic WBC 56 H 0-5 /HPF Urine Squamous Epithelial Cells Few <5 /hpf Urine Bacteria Few H None Seen /hpf Urine Mucus Few None Seen Urine Yeast (Budding) Moderate None Seen /hpf Urine Glucose Normal Normal mg/dL White Blood Count 7.6 4.4-10.8 10^3/uL Red Blood Count 3.47 L 4.0-5.20 10^6/uL Hemoglobin 10.6 L 12.2-16.2 g/dL Hematocrit 31.7 L 36.0-46.0 % Mean Corpuscular Volume 91.4 80.0-100.0 fL Mean Corpuscular Hemoglobin 30.4 28.0-32.0 pg Mean Corpuscular Hemoglobin Concent 33.2 32.0-36.0 g/dL Red Cell Distribution Width 13.1 11.8-14.3 % Platelet Count 272 140-450 10^3/uL Mean Platelet Volume 7.8 6.9-10.8 fL Neutrophils (%) (Auto) 57.6 37.0-80.0 % Lymphocytes (%) (Auto) 32.5 10.0-50.0 % Monocytes (%) (Auto) 6.5 0.0-12.0 % Eosinophils (%) (Auto) 3.1 0.0-7.0 % Basophils (%) (Auto) 0.3 0.0-2.0 % Neutrophils # (Auto) 4.4 1.6-8.6 10 ^3/uL Lymphocytes # (Auto) 2.5 0.4-5.4 10 ^3/uL Monocytes # (Auto) 0.5 0-1.3 10 ^3/uL Eosinophils # (Auto) 0.2 0-0.8 10 ^3/uL Basophils # (Auto) 0 0-0.2 10 ^3/uL Nucleated Red Blood Cells 0.1 % Erythrocyte Sedimentation Rate 57 H 0-20 mm/hr Sodium Level 138 136-145 mmol/L Potassium Level 4.1 3.5-5.1 mmol/L Chloride Level 109 H 98-107 mmol/L Carbon Dioxide Level 23 20-31 mmol/L Anion Gap 6 5-15 Blood Urea Nitrogen 13 9-23 mg/dL Creatinine 0.72 0.550-1.02 mg/dL Glomerular Filtration Rate Calc 115 >90 mL/min BUN/Creatinine Ratio 18.1 10.0-20.0 Serum Glucose 84 74-106 mg/dL Lactic Acid Level 0.8 0.4-2.0 mmol/L Calcium Level 9.2 8.7-10.4 mg/dL Total Bilirubin 0.4 0.2-1.0 mg/dL Aspartate Amino Transferase (AST) 33 13-40 U/L Alanine Aminotransferase (ALT) 39 7-40 U/L Alkaline Phosphatase 79 46-116 U/L C-Reactive Protein High Sensitivity 2.33 H <1.0 mg/dL B-Type Natriuretic Peptide 125.77 0-100 pg/mL Total Protein 6.3 5.7-8.2 g/dL Albumin 3.9 3.2-4.8 g/dL [place] [address] Ph: [phone] DIAGNOSTIC IMAGING Diagnostic Imaging Report : [id number] Signed PATIENT: ROCIO GONZALEZ ACCT: [id number] UNIT: [id number] : 1995 LOC: ER ROOM / BED: / AGE / SEX: 28 / F ADM STATUS: REG ER SERVICE 1731 ORDERING PHYSICIAN: GEORGE WHITT DO PROCEDURE(s): BLDVT - BiLat Lower DVT REASON: LEG SWELLING ORDER NUMBER(s): [id number], ACCESSION NUMBER(s): [id number] Bilateral lower extremity venous duplex Clinical History: LEG SWELLING Comparison: None Technique: Duplex Doppler evaluation of the deep venous systems of both lower extremities from the common femoral veins to the popliteal veins including color Doppler and spectral/pulsed waveform analysis was performed. Findings: RIGHT SIDE: The common femoral vein demonstrates appropriate compressibility and waveform variability. There is compressibility/patency of the great saphenous vein at the proximal thigh. The femoral vein demonstrates appropriate compressibility and waveform variability. The deep femoral vein demonstrates appropriate compressibility and waveform variability. The popliteal vein demonstrates appropriate compressibility and waveform variability. There is normal compressibility at the tibioperoneal trunk. LEFT SIDE: The common femoral vein demonstrates appropriate compressibility and waveform variability. There is compressibility/patency of the great saphenous vein at the proximal thigh. The femoral vein demonstrates appropriate compressibility and waveform variability. The deep femoral vein demonstrates appropriate compressibility and waveform variability. The popliteal vein demonstrates appropriate compressibility and waveform variability. There is normal compressibility at the tibioperoneal trunk. Impression: No evidence of right or left femoropopliteal venous thrombosis. ATED BY: MIKO ONEAL MD DICTATED DATE/TIME: 10/08/241823 SIGNED BY: MIKO ONEAL MD SIGNED DATE/TIME: 10/08/241823 CC: Time of 1ST Reevaluation: 17:30 Reevaluation 1ST: Unchanged Time of 2ND Reevaluation: 22:06 (The case was discussed with the [facility] on- call team (HPI, physical exam, labs and diagnostic tests that were available at the time of disposition, ED course, treatment plan) on the phone. They agreed with our plan. They agree with antibiotics choice of Rocephin here in the ED and Keflex to be discharged home with for UTI and Diflucan as well. I discussed specifically with Dr. Jennifer Chaney concerns for preeclampsia that the patient has voiced. I discussed with him all the vital signs we have and the urinalysis and the labs. Patient does not meet criteria for preeclampsia at this time. Patient never had any preeclampsia before. We discussed breast-feeding safe medications as well.) Patient Education/Counseling: Diagnosis, Treatment Family Education/Counseling: Other Comments Patient presented with the above HPI.---bilateral leg swelling---workup was initiated. patient was found with the above mentioned diagnosis. the following medications were ordered: please refer to order lists of meds and tests obtained by myself Dr. Whitt. Patient ED course and VS have been stabilized. Patient has been reassessed in the ED and remained in a stable condition. Pertinent incidental findings were discussed with the patient and/or family. Patient/family voices understanding and is agreeable with plan. Patient has been observed in the ED adequate length of time to insure improv ement/stability. Escalation of care considered: Consideration of escalation to observation or admission Patient was DISCHARGED home in a stable condition. All the reports of any imaging studies that were ordered by myself were reviewed by myself. Departure 1 Departure Time of Disposition: 19:35 Impression: Primary Impression: Leg swelling Additional Impressions: UTI (urinary tract infection) Yeast UTI Disposition: 01 HOME / SELF CARE / HOMELESS Condition: Stable Additional Instructions: Additional instructions: You MUST follow-up with your primary care/family doctor in 1 to 2 days. If you are unable to see your primary care/family doctor, please return to our emergency room for re-assessment and re-evaluation in 1 to 2 days. Return to the emergency room here in our facility or to the nearest ER [facility] if your symptoms change or worsen. CONSULTATIONS: you MUST Follow-up for consultation as soon as possible with: -[facility] and cardiology in 1-2 days. Please call for appointment. You MUST call the consultants office yourself to make an appointment. You may need to arrange that through your insurance and/or your primary/family doctor. If you are unable to see the [facility] consultant in 1 to 2 days, you must return to our emergency room (or any other ER of your choice) for re-assessment and re- evaluation. Adequate fluid hydration. Repeat lower extremity ultrasound in 4-5 days if symptoms do not resolve or sooner if symptoms worsen. Leg elevation. Wear compression stockings. the medicine we gave you to help remove some water/ swelling from your legs could pass through your breast milk. Consider pumping and dumping. 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 Below is a copy of your radiological report for follow up: [place] [address] Ph: [phone] DIAGNOSTIC IMAGING Diagnostic Imaging Report : [id number] Signed PATIENT: ROCIO GONZALEZ ACCT: [id number] UNIT: [id number] : 1995 LOC: ER ROOM / BED: / AGE / SEX: 28 / F ADM STATUS: REG ER SERVICE 1735 ORDERING PHYSICIAN: GEORGE WHITT DO PROCEDURE(s): BLDVT - BiLat Lower DVT REASON: LEG SWELLING ORDER NUMBER(s): [id number], ACCESSION NUMBER(s): [id number] Bilateral lower extremity venous duplex Clinical History: LEG SWELLING Comparison: None Technique: Duplex Doppler evaluation of the deep venous systems of both lower extremities from the common femoral veins to the popliteal veins including color Doppler and spectral/pulsed waveform analysis was performed. Findings: RIGHT SIDE: The common femoral vein demonstrates appropriate compressibility and waveform variability. There is compressibility/patency of the great saphenous vein at the proximal thigh. The femoral vein demonstrates appropriate compressibility and waveform variability. The deep femoral vein demonstrates appropriate compressibility and waveform variability. The popliteal vein demonstrates appropriate compressibility and waveform variability. There is normal compressibility at the tibioperoneal trunk. LEFT SIDE: The common femoral vein demonstrates appropriate compressibility and waveform variability. There is compressibility/patency of the great saphenous vein at the proximal thigh. The femoral vein demonstrates appropriate compressibility and waveform variability. The deep femoral vein demonstrates appropriate compressibility and waveform variability. The popliteal vein demonstrates appropriate compressibility and waveform variability. There is normal compressibility at the tibioperoneal trunk. Impression: No evidence of right or left femoropopliteal venous thrombosis. ATED BY: MIKO ONEAL MD DICTATED DATE/TIME: 10/08/241823 SIGNED BY: MIKO ONEAL MD SIGNED DATE/TIME: 10/08/241823 CC: e-Prescriptions Cephalexin Monohydrate (Cephalexin) 500 Mg Tab 1 TAB PO TID for 7 Days, #21 TAB Prov: GEORGE WHITT DO 10/08/24 Furosemide (Lasix) 20 Mg Tb 1 TAB PO DAILY for 3 Days, #3 TAB 0 Refills Prov: GEORGE WHITT DO 10/08/24 Discharged With: Self Critical Care Note Critical Care Time?: Yes (35 min-critical care time only) I personally scribed for GEORGE WHITT DO ([email or web address]) on 10/08/24 at 18:27. Electronically submitted by Jd England ([email or web address]). I personally scribed for GEORGE WHITT DO ([email or web address]) on 10/08/24 at 18:35. Electronically submitted by Jd England ([email or web address]). I personally scribed for GEORGE WHITT DO ([email or web address]) on 10/08/24 at 18:36. Electronically submitted by Jd England ([email or web address]). GEORGE WHITT DO Oct 08, 2024 18:27
[2024-10-08 18:43] LABS: Basophils # (auto) 0 10 ^3/uL (0-0.2); Basophils % (auto) 0.3 % (0.0-2.0); Eosinophils # (auto) 0.2 10 ^3/uL (0-0.8); Eosinophils % (auto) 3.1 % (0.0-7.0); Hematocrit 31.7 % (36.0-46.0); Hemoglobin 10.6 g/dL (12.2-16.2); Lymphocytes # (auto) 2.5 10 ^3/uL (0.4-5.4); Lymphocytes % (auto) 32.5 % (10.0-50.0); Mean Corpuscular Hemoglobin 30.4 pg (28.0-32.0); Mean Corpuscular Hgb Conc. 33.2 g/dL (32.0-36.0); Mean Corpuscular Volume 91.4 fL (80.0-100.0); Monocytes # (auto) 0.5 10 ^3/uL (0-1.3); Monocytes % (auto) 6.5 % (0.0-12.0); Neutrophils # (auto) 4.4 10 ^3/uL (1.6-8.6); Neutrophils % (auto) 57.6 % (37.0-80.0); Nucleated Red Blood Cells % 0.1 %; Platelet Count (auto) 272 10^3/uL (140-450); Red Blood Cells 3.47 10^6/uL (4.0-5.20); Red Cell Distribution Width 13.1 % (11.8-14.3); White Blood Cell 7.6 10^3/uL (4.4-10.8)
[2024-10-08 18:54] LABS: Alanine Aminotransferase 39 U/L (7-40); Albumin 3.9 g/dL (3.2-4.8); Alkaline Phosphatase 79 U/L (46-116); Anion Gap 6 (5-15); Aspartate Aminotransferase 33 U/L (13-40); BUN/Creatinine Ratio 18.1 (10.0-20.0); Bilirubin, Total 0.4 mg/dL (0.2-1.0); Blood Urea Nitrogen 13 mg/dL (9-23); Calcium 9.2 mg/dL (8.7-10.4); Carbon Dioxide 23 mmol/L (20-31); Glucose 84 mg/dL (74-106); Potassium 4.1 mmol/L (3.5-5.1); Sodium 138 mmol/L (136-145); Total Protein 6.3 g/dL (5.7-8.2)
[2024-10-08 19:03] LABS: CRP High Sensitivity 2.33 mg/dL (<1.0); Chloride 109 mmol/L (98-107)
[2024-10-08] MEDS ORDERED: FUROSEMIDE 40 MG/4 ML VIAL IV ONE (19:15)
[2024-10-08 19:32] LABS: Erythrocyte Sedimentation Rate 57 mm/hr (0-20)
[2024-10-08] MEDS ORDERED: FURO1TAB33 PO (19:38)
[2024-10-08] MEDS: FUROSEMIDE 20 MG TAB PO ONE (20:16)
[2024-10-08 20:42] LABS: Urine Bacteria FEW /hpf (None Seen); Urine Blood 3+ /uL (Negative); Urine Budding Yeast MODERATE /hpf (None Seen); Urine Clarity Turbid (Clear); Urine Color Colorless (Yellow); Urine Mucus FEW (None Seen); Urine Protein, UAD Negative (Negative); Urine Specific Gravity 1.015 (1.001-1.035); Urine Squamous Epithelial Cell FEW /hpf (<5); Urine Urobilinogen Normal (Negative); Urine WBC 56 /HPF (0-5); Urine pH 6.5 (5.0-9.0)
[2024-10-08 21:26] VITALS: BP 126/85; PULSE 65; RESP 19; TEMP 98.6; O2SAT 98
[2024-10-08] MEDS ORDERED: CEPH500T PO (22:05)
[2024-10-08] MEDS: FLUCONAZOLE 100 MG TAB PO ONE (22:35)
[2024-10-08] MEDS: cefTRIAXone 1GM/50ML D5W 50 ML IV ONE (22:36)
== END 2024-10-08 23:00 | disposition home or self-care (01) ==
LOC: ER 17:28
DX: M79.89 Other specified soft tissue disorders (principal); N39.0 Urinary tract infection, site not specified; R06.02 Shortness of breath; Z79.899 Other long term (current) drug therapy; Z88.0 Allergy status to penicillin
CPT/HCPCS: 36415; 80053; 81001; 83605; 83880; 85025; 85652; 86141; 93970; 96365; 99285; J0696